=== PATIENT | male | born 1960 | race Caucasian/White ===

== ENCOUNTER 2024-02-04 13:01 | Outpatient (REF) | payer BC, SELFPAY ==
[2024-02-04 15:25] LABS: Bilirubin Negative (Negative); Blood Negative (Negative); Clarity Clear (Clear); Glucose Negative (Negative); Ketones Negative (Negative); Leukocyte Esterase Negative (Negative); Nitrite Negative (Negative); Urobilinogen 0.2 mg/dL (Up to 0.2); pH 5.5 (5-8)
[2024-02-04 16:02] LABS: ALT 54 U/L (16-63); AST 55 U/L (15-37); Alkaline Phosphatase 111 U/L (46-116); BUN 31 mg/dL (7-18); Bilirubin, Total 0.51 mg/dL (0.2-1.0); CREATININE 1.8 mg/dL (0.70-1.30); Calcium 8.8 mg/dL (8.5-10.1); Chloride 103 mmol/L (98-107); Estimated GFR 41.77 (mL/min/1.73m2); Glucose 114 mg/dL (74-106); Potassium 4.4 mmol/L (3.5-5.1); Sodium 140 mmol/L (136-145); Total Protein 6.9 g/dL (6.4-8.2); Uric Acid 4.4 mg/dL (3.5-7.2)
[2024-02-04 16:42] LABS: Ferritin 395 ng/mL (26-388)
[2024-02-04 17:06] LABS: Iron 81 ug/dL (65-175); Total Iron Binding Capacity 304 ug/dL (250-450); Transferrin Sat 27 % (20-55)
== END 2024-02-04 13:02 | disposition home or self-care (01) ==
LOC: NCHCN 13:01
PROVIDERS: Visit Provider Internal Medicine
DX: N18.32 Chronic kidney disease, stage 3b (principal); N64.9 Disorder of breast, unspecified; M10.9 Gout, unspecified
CPT/HCPCS: 80053; 81003; 82728; 83540; 83550; 84550

== ENCOUNTER 2025-02-21 14:53 | Outpatient (REF) | payer BC, SELFPAY | END 2025-02-21 14:54 | disposition home or self-care (01) | LOC: NCHCN 14:53 | PROVIDERS: Visit Provider Internal Medicine | DX: I10 Essential (primary) hypertension (principal) | CPT/HCPCS: 82043; 82570 ==